=== PATIENT | female | born 1945 | race Caucasian/White ===

== ENCOUNTER → 2018-10-05 | Outpatient (CLI) | payer MEDICARE, OTHER ==
--- NOTE | 2018-10-05 18:41 | Diagnostic Imaging Report ---
INDICATION: Fall with injury to the right arm. TIME OF EXAM: 2:24 p.m. FINDINGS: Two views of the right humerus were obtained. Alignment at the shoulder and elbow appears normal. The humerus appears intact. No fractures are seen. IMPRESSION: No acute bony abnormality is detected. Dictated by: Dictated on workstation # [id number]
--- NOTE | 2018-10-05 18:51 | Diagnostic Imaging Report ---
INDICATION: Fall, pain. FINDINGS: No clavicular fracture deformity. There is no evidence for separation of the AC or CC joints. The visualized adjacent ribs and pleura are nonacute. The glenohumeral joint reveals degenerative change. IMPRESSION: Intact clavicle. No acute finding. Dictated by: Dictated on workstation # [id number]
== END ==
LOC: RAD FS 14:10
PROVIDERS: ATTEND Nurse Practitioner
DX: S40.011A Contusion of right shoulder, initial encounter (principal); W19.XXXA Unspecified fall, initial encounter
CPT/HCPCS: 73000; 73060

== ENCOUNTER 2018-12-18 15:12 | Emergency (ER) | payer MEDICARE, OTHER ==
[~2018-12-18] VITALS: Ht 165.1 cm; Wt 78.5 kg
[2018-12-18] MEDS ORDERED: ALLO300T2 PO (15:36)
[2018-12-18] MEDS ORDERED: SITA1TAB6 PO (15:36)
[2018-12-18] MEDS ORDERED: CITA40TA11 PO (15:36)
[2018-12-18] MEDS ORDERED: CARV12.53 PO (15:36)
[2018-12-18] MEDS ORDERED: LEVO125T6 PO (15:36)
[2018-12-18] MEDS ORDERED: INSU300I3 SQ (15:36)
[2018-12-18] MEDS ORDERED: LISI1TAB6 PO (15:36)
[2018-12-18 16:04] LABS: BASOPHILS % (AUTO) 0 % (0-10); EOSINOPHILS % (AUTO) 10 % (0-10); HEMATOCRIT 40 % (35-52); HEMOGLOBIN 12.8 G/DL (11.5-16.0); LYMPHOCYTES # (AUTO) 0.9 X 10^3 (1.0-4.0); LYMPHOCYTES % (AUTO) 9 % (12-44); MEAN CORPUSCULAR HEMOGLOBIN 30 PG (25-34); MEAN CORPUSCULAR HGB CONC 32 G/DL (32-36); MEAN CORPUSCULAR VOLUME 91 FL (80-99); MEAN PLATELET VOLUME 9.9 FL (7.4-10.4); MONOCYTES # (AUTO) 1.2 X 10^3 (0.0-1.0); MONOCYTES % (AUTO) 11 % (0-12); NEUTROPHILS # (AUTO) 7.3 X 10^3 (1.8-7.8); NEUTROPHILS % (AUTO) 70 % (42-75); PLATELET COUNT 232 10^3/uL (130-400); RED CELL DISTRIBUTION WIDTH 12.3 % (10.0-14.5); WHITE BLOOD COUNT 10.4 10^3/uL (4.3-11.0)
[2018-12-18 16:25] LABS: ALANINE AMINOTRANSFERASE 9 U/L (0-55); ALBUMIN 3.4 GM/DL (3.2-4.5); ALKALINE PHOSPHATASE 86 U/L (40-136); BILIRUBIN,TOTAL 0.6 MG/DL (0.1-1.0); BUN/CREATININE RATIO 26; CALCIUM 9.9 MG/DL (8.5-10.1); CARBON DIOXIDE 25 MMOL/L (21-32); CHLORIDE 101 MMOL/L (98-107); CREATININE SERUM 0.73 MG/DL (0.60-1.30); GFR ESTIMATED > 60; GLUCOSE 117 MG/DL (70-105); POTASSIUM 4.2 MMOL/L (3.6-5.0); SODIUM 139 MMOL/L (135-145); TOTAL PROTEIN 6.5 GM/DL (6.4-8.2)
[2018-12-18 16:26] LABS: AMYLASE 23 U/L (25-125); LIPASE 15 U/L (8-78)
[2018-12-18 16:41] LABS: BILIRUBIN,URINE NEGATIVE (NEGATIVE); CLARITY,URINE SLIGHTLY CLOUDY; COLOR,URINE YELLOW; GLUCOSE, URINE (UA) NEGATIVE (NEGATIVE); KETONES,URINE NEGATIVE (NEGATIVE); LEUKOCYTE ESTERASE ,URINE 2+ (NEGATIVE); NITRITE,URINE POSITIVE (NEGATIVE); PH,URINE 6 (5-9); PROTEIN,URINE 2+ (NEGATIVE); UROBILINOGEN,URINE NORMAL (NORMAL)
--- NOTE | 2018-12-18 17:02 | ED Abdominal Pain ---
General Chief Complaint: Abdominal/GI Problems Stated Complaint: STOMACH CRAMPS/WEAKNESS/DIZZINESS/ELEV BLOOD SUGAR Nursing Triage Note: PATIENT STATES THAT SHE HAS HAD ABDOMINAL CRAMPING FOR 2 WEEK. DENIES N/D/V. STATES THAT SHE IS WEAK AND NOT EATING. BLOOD SUGARS HAVE BEEN "OUT OF CONTROL. " STATES SHE CANNOT EVEN WALK. sHE HAS BEEN TAKING PEPTOBISMOL BUT IT IS NOT HELPING. Sepsis Screen: No Definite Risk Source of Information: Patient Exam Limitations: No Limitations History of Present Illness Date Seen by Provider: Dec 18, 2018 Time Seen by Provider: 15:50 Initial Comments 73-year-old female who was brought to the emergency room for complaints of abdominal cramping, nausea, vomiting, diarrhea for the past 2 weeks. She reports that her blood sugars have been out of control and this has been making her so weak that she can't walk. She has been using [id number] Pepto- Bismol with no relief. She ambulated to the exam room and to the restroom without difficulty. She is alert and oriented on arrival to the emergency room accompanied by her . She had an appointment with Dr. Burns in [place] 3 days ago but denied to tell him any of these symptoms. Severity/Quality: Cramping Location: Generalized Abdomen Radiation: No Radiation Associated Symptoms: Nausea/Vomiting Allergies and Home Medications Allergies Coded Allergies: No Known Drug Allergies (Unverified , 12/18/18) Home Medications Carvedilol 12.5 Mg Tablet, 12.5 MG PO BID, (Reported) Lisinopril/Hydrochlorothiazide 1 Each Tablet, 1 EACH PO DAILY, (Reported) Nitrofurantoin Monohyd/M-Cryst 100 Mg Capsule, 1 TAB PO BID Prescribed by: SHERRY PALACIO on 12/18/18 0455 Patient Home Medication List Home Medication List Reviewed: Yes Review of Systems Review of Systems Constitutional: see HPI; No chills, No fever Gastrointestinal: See HPI, Abdominal Pain (cramping), Diarrhea, Nausea, Vomiting All Other Systems Reviewed Negative Unless Noted: Yes Past Hbvcjvs-Ignion-Ojrcxi Hx Past Med/Social Hx: Reviewed Nursing Past Med/Soc Hx Patient Social History Alcohol Use: Denies Use Recreational Drug Use: No Smoking Status: Never a Smoker 2nd Hand Smoke Exposure: Yes Recent Foreign Travel: No Contact w/Someone Who Travel: No Recent Infectious Disease Expo: No Recent Hopitalizations: No Physical Abuse: No Sexual Abuse: No Mistreated: No Fear: No Seasonal Allergies Seasonal Allergies: No Past Medical History Surgeries: Yes Gallbladder, Hysterectomy Respiratory: Yes Sleep Apnea Cardiac: Yes Coronary Artery Disease, Hypertension Neurological: Yes (PASSES OUT) Genitourinary: No Gastrointestinal: No Musculoskeletal: No Endocrine: Yes Diabetes, Insulin dep HEENT: No Cancer: No Psychosocial: No Integumentary: No Blood Disorders: No Family Medical History Reviewed Nursing Family Hx Physical Exam Vital Signs Vital Signs - First Documented 12/18/18 15:17 Temp 97.9 Pulse 65 Resp 18 B/P (MAP) 127/64 (85) Pulse Ox 96 O2 Delivery Room Air Capillary Refill : Less Than 3 Seconds Height/Weight/BMI Height: 5'5.00" Weight: 173lbs. 0oz. 78.131461jm; BMI Method:Actual General Appearance: WD/WN, no apparent distress Respiratory: chest non-tender, lungs clear, normal breath sounds, no respiratory distress, no accessory muscle use Cardiovascular: normal peripheral pulses, regular rate, rhythm, no edema, no gallop, no JVD, no murmur Gastrointestinal: normal bowel sounds, non tender, soft, no organomegaly, no pulsatile mass Extremities: normal capillary refill Neurologic/Psychiatric: alert, normal mood/affect, oriented x 3 Skin: normal color, warm/dry Progress/Results/Core Measures Results/Orders Lab Results Laboratory Tests Test 12/18/18 15:48 12/18/18 16:00 12/18/18 16:35 Range/Units Glucometer 117 H 70-110 MG/DL White Blood Count 10.4 4.3-11.0 10^3/uL Red Blood Count 4.34 L 4.35-5.85 10^6/uL Hemoglobin 12.8 11.5-16.0 G/DL Hematocrit 40 35-52 % Mean Corpuscular Volume 91 80-99 FL Mean Corpuscular Hemoglobin 30 25-34 PG Mean Corpuscular Hemoglobin Concent 32 32-36 G/DL Red Cell Distribution Width 12.3 10.0-14.5 % Platelet Count 232 130-400 10^3/uL Mean Platelet Volume 9.9 7.4-10.4 FL Neutrophils (%) (Auto) 70 42-75 % Lymphocytes (%) (Auto) 9 L 12-44 % Monocytes (%) (Auto) 11 0-12 % Eosinophils (%) (Auto) 10 0-10 % Basophils (%) (Auto) 0 0-10 % Neutrophils # (Auto) 7.3 1.8-7.8 X 10^3 Lymphocytes # (Auto) 0.9 L 1.0-4.0 X 10^3 Monocytes # (Auto) 1.2 H 0.0-1.0 X 10^3 Eosinophils # (Auto) 1.0 H 0.0-0.3 10^3/uL Basophils # (Auto) 0.0 0.0-0.1 10^3/uL Sodium Level 139 135-145 MMOL/L Potassium Level 4.2 3.6-5.0 MMOL/L Chloride Level 101 98-107 MMOL/L Carbon Dioxide Level 25 21-32 MMOL/L Anion Gap 13 5-14 MMOL/L Blood Urea Nitrogen 19 H 7-18 MG/DL Creatinine 0.73 0.60-1.30 MG/DL Estimat Glomerular Filtration Rate > 60 BUN/Creatinine Ratio 26 Glucose Level 117 H 70-105 MG/DL Calcium Level 9.9 8.5-10.1 MG/DL Corrected Calcium 10.4 H 8.5-10.1 MG/DL Total Bilirubin 0.6 0.1-1.0 MG/DL Aspartate Amino Transf (AST/SGOT) 23 5-34 U/L Alanine Aminotransferase (ALT/SGPT) 9 0-55 U/L Alkaline Phosphatase 86 40-136 U/L Total Protein 6.5 6.4-8.2 GM/DL Albumin 3.4 3.2-4.5 GM/DL Amylase Level 23 L 25-125 U/L Lipase 15 8-78 U/L Urine Color YELLOW Urine Clarity SLIGHTLY CLOUDY Urine pH 6 5-9 Urine Specific Galliano 1.025 H 1.016-1.022 Urine Protein 2+ H NEGATIVE Urine Glucose (UA) NEGATIVE NEGATIVE Urine Ketones NEGATIVE NEGATIVE Urine Nitrite POSITIVE H NEGATIVE Urine Bilirubin NEGATIVE NEGATIVE Urine Urobilinogen NORMAL NORMAL MG/DL Urine Leukocyte Esterase 2+ H NEGATIVE Urine RBC (Auto) 2+ H NEGATIVE Urine RBC NONE /HPF Urine WBC 10-25 H /HPF Urine Crystals NONE /LPF Urine Bacteria LARGE H /HPF Urine Casts NONE /LPF Urine Mucus NEGATIVE /LPF Urine Culture Indicated YES Micro Results Microbiology 12/18/18 Urine Culture - Final, Complete Escherichia coli My Orders Orders - SHERRY PALACIO Comprehensive Metabolic Panel (12/18/18 15:50) Lipase (12/18/18 15:50) Amylase (12/18/18 15:50) Ua Culture If Indicated (12/18/18 15:50) Ed Iv/Invasive Line Start (12/18/18 15:50) Cbc With Automated Diff (12/18/18 15:50) Urine Culture (12/18/18 16:35) Nitrofurantoin Capsule,Macro (Macrobid C (12/18/18 17:15) Vital Signs/I&O 12/18/18 12/18/18 15:17 17:40 Temp 97.9 98.6 Pulse 65 66 Resp 18 18 B/P (MAP) 127/64 (85) 128/65 (86) Pulse Ox 96 96 O2 Delivery Room Air Blood Pressure Mean: 85 Progress Progress Note : Time: 17:15 Progress Note I have seen and evaluated the patient. I've informed her of her laboratory and imaging studies. Her blood sugar is well controlled today. She is not exhibiting any of her symptoms that she's had for the past 2 weeks today. She agrees with plan of care, plans for follow-up with Dr. Burns, return precautions were given. Departure Impression Primary Impression: Urinary tract infection Disposition: 01 HOME, SELF-CARE Condition: Stable/Unchanged Departure-Patient Inst. Decision time for Depature: 17:15 Referrals: PATRICIA BURNS MD (PCP/Family) Primary Care Physician Patient Instructions: Urinary Tract Infection, Adult (DC) Add. Discharge Instructions: Drink plenty of clear liquids like water to stay hydrated and help flush out your urinary tract infection. Take antibiotics as directed. Call Dr. Burns's office tomorrow to schedule appointment to have a recheck on your urine and to discuss options for changing your diabetic medications. Return back to the emergency room for worsening symptoms or concerns as needed. All discharge instructions reviewed with patient and/or family. Voiced understanding. Scripts Nitrofurantoin Monohyd/M-Cryst (Macrobid 100 mg Capsule) 100 Mg Capsule 1 TAB PO BID for 7 Days, #14 CAP Prov: SHERRY PALACIO 12/18/18 SHERRY PALACIO Dec 18, 2018 17:02
[2018-12-18 17:06] LABS: BACTERIA,URINE LARGE /HPF
[2018-12-18] MEDS ORDERED: NITROFURANTOIN 100 MG (MACROBID) CAPSULE PO ONE (17:15)
[2018-12-18] MEDS ORDERED: NITR-65 PO (17:17)
[2018-12-18 17:40] VITALS: BP 128/65
== END 2018-12-18 17:42 | disposition home or self-care (01) ==
LOC: EDUNIT# 15:12 → ER 15:14
DX: N39.0 Urinary tract infection, site not specified (principal); G47.30 Sleep apnea, unspecified; I25.10 Atherosclerotic heart disease of native coronary artery without angina pectoris; I10 Essential (primary) hypertension; E11.9 Type 2 diabetes mellitus without complications; Z77.22 Contact with and (suspected) exposure to environmental tobacco smoke (acute) (chronic); Z90.710 Acquired absence of both cervix and uterus; Z98.890 Other specified postprocedural states
CPT/HCPCS: 36415; 80053; 81000; 82150; 82962; 83690; 85025; 87077; 87088; 87186; 99283

== ENCOUNTER 2019-01-04 11:07 | Inpatient (IN) | payer MEDICARE, OTHER | END 2019-01-09 14:00 | disposition other institution (70) | LOC: ER FS 11:07 → 4TH 14:19 | DX: K86.9 Disease of pancreas, unspecified (principal); R10.84 Generalized abdominal pain; R18.8 Other ascites; I11.0 Hypertensive heart disease with heart failure; I50.32 Chronic diastolic (congestive) heart failure; N30.00 Acute cystitis without hematuria; E87.1 Hypo-osmolality and hyponatremia; E86.0 Dehydration; Z66 Do not resuscitate; I25.10 Atherosclerotic heart disease of native coronary artery without angina pectoris; E11.9 Type 2 diabetes mellitus without complications; R13.12 Dysphagia, oropharyngeal phase; I34.0 Nonrheumatic mitral (valve) insufficiency; G47.30 Sleep apnea, unspecified; G30.9 Alzheimer's disease, unspecified; F02.80 Dementia in other diseases classified elsewhere, unspecified severity, without behavioral disturbance, psychotic disturbance, mood disturbance, and anxiety; N28.9 Disorder of kidney and ureter, unspecified; E03.9 Hypothyroidism, unspecified; E78.5 Hyperlipidemia, unspecified; D72.829 Elevated white blood cell count, unspecified; Z79.4 Long term (current) use of insulin; Z95.5 Presence of coronary angioplasty implant and graft; Z77.22 Contact with and (suspected) exposure to environmental tobacco smoke (acute) (chronic) ==